=== PATIENT | female | born 1955 | race Caucasian/White ===

== ENCOUNTER 2016-11-28 17:30 | Emergency (ER) | payer BC ==
[2016-11-28] MEDS ORDERED: Lisinopril 10 MG Tab PO ONE (18:28)
--- NOTE | 2016-11-28 18:32 | EDM.PDOC ---
ED HPI GENERAL MEDICAL PROBLEM - General Chief Complaint: General Stated Complaint: high blood pressure, bilateral numbness hips to knees Time Seen by Provider: 11/28/16 18:02 Source of Information: Reports: Patient, Family History Limitations: Reports: No limitations - History of Present Illness INITIAL COMMENTS - FREE TEXT/NARRATIVE: Patient reports HTN since her appointment with neurologist Dr. Goodman. 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 This test was inconclusive but while there she was hypertensive. told her at that time to watch it and present in 1 week for follow up with possible medications as appropriate for hypertension treatment. She denies other medical problems. Takes multivitamins. No prescription medications. No smoking, rare alcohol use. She told nurse about a tension headache posterior, she did not mention this to me. Has right sided chest pressure that started before she took her blood pressure. Onset: other Onset Date: 11/22/16 Duration: Intermittent, Recurring Location: Reports: chest Quality: Reports: Ache, Pressure Severity: mild Improves with: Reports: None Worsens with: Reports: None Associated Symptoms: Reports: other (numbness bilateral legs) Treatments CHIP PERSON: Reports: Acetaminophen - Related Data Allergies Allergy/AdvReac Type Severity Reaction Status Date / Time acetaminophen [From Percocet] Allergy Hives Verified 11/28/16 18:23 oxycodone [From Percocet] Allergy Hives Verified 11/28/16 18:23 tetracycline Allergy Cannot Verified 11/28/16 18:23 Remember Home Meds: Home Meds . [Unable to Verify Home Med List] 11/28/16 [History] ED ROS GENERAL - Review of Systems Review Of Systems: See Below Constitutional: Reports: no symptoms HEENT: Reports: No symptoms Respiratory: Reports: no symptoms Cardiovascular: Reports: Chest pain Endocrine: Reports: no symptoms GI/Abdominal: Reports: No symptoms : Reports: no symptoms Musculoskeletal: Reports: no symptoms Skin: Reports: no symptoms Neurological: Reports: headache, numbness (bilateral upper legs/hips to knees) Psychiatric: Reports: No symptoms Hematologic/Lymphatic: Reports: no symptoms Immunologic: Reports: no symptoms ED EXAM, GENERAL - Physical Exam Exam: See Below Exam Limited By: No limitations General Appearance: alert, WD/WN, no apparent distress Eye Exam: bilateral eye: EOMI, PERRL Ears: normal TMs Nose: normal inspection Throat/Mouth: Normal inspection, Normal oropharynx Head: atraumatic, normocephalic Neck: normal inspection, supple, non-tender Respiratory/Chest: no respiratory distress, lungs clear, normal breath sounds, no accessory muscle use, chest non-tender Cardiovascular: normal peripheral pulses, regular rate, rhythm, no edema, no gallop, no JVD, no murmur, no rub Peripheral Pulses: 2+: posterior tibial (L), posterior tibial (R), dorsalis pedis (L), dorsalis pedis (R) GI/Abdominal: normal bowel sounds, soft, non tender, no organomegaly Extremities: normal inspection, normal range of motion, normal capillary refill Neurological: alert, oriented, CN II-XII intact, normal cognition, normal gait, normal reflexes Psychiatric: normal affect, normal mood Skin Exam: Warm, Dry, Intact, Normal color, No rash Lymphatic: no adenopathy Departure - Departure Time of Disposition: 20:44 Disposition: Home, Self-Care 01 Clinical Impression: Hypertension Instructions: Hypertension, [id number], Cerebral Aneurysm Forms: ED Department Discharge Additional Instructions: You do need to keep your neurologist appointment next week. You may need additional dose changes or medication changes for your high blood pressure and this should really be managed by your primary doctor as they do know you best. Your TSH level was slightly elevated at 4.857 CT exam did show an aneurysm that did not show any bleeding or leakage. It is therefore extremely important to get your blood pressure regulated as soon as possible. If you have any neurologic changes or severe headaches like you have never had before it is important to be seen immediately. Please call us with any questions or concerns. - Problem List & Annotations (1) Hypertension SNOMED Code(s): 21423531 Code(s): I10 - ESSENTIAL (PRIMARY) HYPERTENSION Status: Acute Priority: Medium Current Visit: Yes Qualifiers: Hypertension type: essential hypertension Qualified Code(s): I10 - Essential (primary) hypertension - Problem List Review Problem List Initiated/Reviewed/Updated: Yes - Assessment/Plan Assessment:: hypertension cerebral aneurysm Plan: You do need to keep your neurologist appointment next week. You may need additional dose changes or medication changes for your high blood pressure and this should really be managed by your primary doctor as they do know you best. Your TSH level was slightly elevated at 4.857 CT exam did show an aneurysm that did not show any bleeding or leakage. It is therefore extremely important to get your blood pressure regulated as soon as possible. If you have any neurologic changes or severe headaches like you have never had before it is important to be seen immediately. Please call us with any questions or concerns.
[2016-11-28 19:15] LABS: CHLORIDE,CL 106 mmol/L (98-107); SODIUM,NA 143 mmol/L (136-145)
[2016-11-29 00:34] VITALS: BP 161/97
== END 2016-11-28 21:00 | disposition home or self-care (01) ==
LOC: VM.ED 17:30
DX: I10 Essential (primary) hypertension (principal); Z88.6 Allergy status to analgesic agent; Z88.5 Allergy status to narcotic agent; Z88.1 Allergy status to other antibiotic agents
CPT/HCPCS: 36415; 70450; 80053; 82550; 82553; 83880; 84443; 84484; 85025; 85379; 85610; 93005; 99284; A9270

== ENCOUNTER 2017-09-20 07:28 | Day surgery (SDC) | payer BC ==
[~2017-09-20 07:28] MED LIST: Lactated Ringers 1,000 ML IV SCH
[2017-09-20] MEDS ORDERED: Midazolam 1 MG/ML 2 ML SDV ONE (09:18)
[2017-09-20] MEDS ORDERED: Propofol 200 MG/20 ML SDV ONE (09:18)
[2017-09-20] MEDS ORDERED: fentaNYL 100 MCG/2 ML SDV ONE (09:18)
[2017-09-20 10:24] VITALS: BP 108/71
--- NOTE | 2017-09-20 15:17 | OR ---
PREOPERATIVE DIAGNOSIS: History of polyps. POSTOPERATIVE DIAGNOSES: Tiny polyp at 15 cm, minimal diverticulosis. PROCEDURE PROPOSED: Total flexible colonoscopy. PROCEDURE DONE: Total flexible colonoscopy with polypectomy x1. INDICATION: This is a 62-year-old female who comes in for colonic surveillance. She had some polyps removed 5 years ago. She denies any symptomatology. TECHNIQUE: The patient was brought to the endoscopy suite and was placed in left lateral decubitus position. She was sedated per [employer] with propofol. The flexible video colonoscope was then passed transanally and under visualization advanced to the cecum. The ascending, transverse, and descending colon were unremarkable. She had a few scattered sigmoid diverticula and at 15 cm, there was a very tiny flat polyp, which is probably a hyperplastic nodule, but I removed with one bite of the cold biopsy forceps and submitted that for pathologic examination. Otherwise, the examination of the rectosigmoid was normal. Scope was then withdrawn. She tolerated the procedure well. FINAL IMPRESSION: 1. Tiny polyp at 15 cm removed. 2. Minimal sigmoid diverticulosis. PLAN: She should continue with colonic surveillance every 5 years hereafter. SCM: 09/20/2017 09:53:06 MODL: 09/20/2017 15:01:31 /[id number]
--- NOTE | 2017-10-10 08:26 | LETTER ---
10/10/2017 Jenna Menezes RE: JENNA MENEZES : 1955 Dear Jenna, The polyp removed from your colon was a benign, insignificant, hyperplastic polyp. This is considered a non-precancer type polyp, but with your history of polyps, I feel that you should continue to have your colon evaluated every 5 years. If you have any further questions, feel free to call. Respectfully,
== END 2017-09-20 11:25 | disposition home or self-care (01) ==
LOC: VM.SDS 07:28
PROVIDERS: ATTEND Surgery
DX: Z12.11 Encounter for screening for malignant neoplasm of colon (principal); K62.1 Rectal polyp; K57.30 Diverticulosis of large intestine without perforation or abscess without bleeding; E78.5 Hyperlipidemia, unspecified; I10 Essential (primary) hypertension; Z86.010 Personal history of colon polyps; Z88.1 Allergy status to other antibiotic agents; Z88.8 Allergy status to other drugs, medicaments and biological substances; Z87.891 Personal history of nicotine dependence
CPT/HCPCS: 45380; J2250; J2704; J3010; J7120

== ENCOUNTER 2023-01-05 09:21 | Day surgery (SDC) | payer MEDICARE, BC ==
[2023-01-05] MEDS ORDERED: Propofol 200 MG/20 ML SDV ONE (10:12)
[2023-01-05] MEDS ORDERED: fentaNYL 100 MCG/2 ML SDV ONE (10:12)
[2023-01-05 12:24] VITALS: BP 116/69; PULSE 73
== END 2023-01-05 13:06 | disposition home or self-care (01) ==
LOC: VM.SDS 09:21
PROVIDERS: ATTEND Family Medicine
DX: Z12.11 Encounter for screening for malignant neoplasm of colon (principal); K57.30 Diverticulosis of large intestine without perforation or abscess without bleeding; I10 Essential (primary) hypertension; E78.5 Hyperlipidemia, unspecified; Z88.5 Allergy status to narcotic agent; Z86.010 Personal history of colon polyps; Z80.0 Family history of malignant neoplasm of digestive organs; Z98.890 Other specified postprocedural states; Z79.899 Other long term (current) drug therapy; Z88.1 Allergy status to other antibiotic agents; Z88.6 Allergy status to analgesic agent
CPT/HCPCS: 00812; J2704; J3010; J7120